=== PATIENT | female | born 1960 | race Caucasian/White ===

== ENCOUNTER → 2020-04-15 14:49 | Outpatient (CLI) | payer MEDICARE, SELFPAY ==
[2020-04-15 15:17] LABS: Basophils % 0.5 % (0.1-2.0); Eosinophils # 0.1 K/mm3 (0.0-0.4); Hematocrit 35.4 % (37.0-47.0); Hemoglobin 11.4 g/dL (12.2-16.2); Lymphocytes # 1.1 K/mm3 (0.7-4.5); Lymphocytes % 25.9 % (10-50); Mean Corpuscular HGB Conc 32.1 g/dL (31.8-35.4); Mean Corpuscular Hemoglobin 28.5 pg (27.0-31.2); Mean Corpuscular Volume 88.9 fl (81-99); Mean Platelet Volume 8.1 fl (7.4-10.4); Monocytes # 0.3 K/mm3 (0.1-1.0); Monocytes % 6.5 % (1.7-9.3); Neutrophils # 2.8 K/mm3 (1.8-7.8); Platelet Count 158 K/mm3 (142-424); Red Blood Count 3.98 M/mm3 (4.20-5.40); Red Cell Distribution Width 15.2 % (11.5-17.5); White Blood Count 4.4 K/mm3 (4.8-10.8)
[2020-04-15 15:26] LABS: Chloride 103 mmol/L (98-107); Potassium 4.5 mmoL/L (3.5-5.1); Sodium 137 mmol/L (136-145)
[2020-04-15 15:27] LABS: INR 1.06 (0.9-1.1); Prothrombin Time 10.9 seconds (9.4-11.8)
[2020-04-15 15:28] LABS: Ammonia < 9 umol/L (9-30)
[2020-04-15 15:29] LABS: Alanine Aminotransferase 32 U/L (12-78); Albumin Level 3.3 g/dl (3.5-5.0); Albumin/Globulin Ratio 0.8 (1.1-1.8); Alkaline Phosphatase 176 U/L (38-126); Anion Gap 10.5 mEq/L (5-15); Aspartate Amino Transferase 41 U/L (14-36); Bilirubin,Total 0.6 mg/dl (0.2-1.3); Blood Urea Nitrogen 15 mg/dl (7-17); Carbon Dioxide 28 mmol/L (22.0-30.0); Estimated Glomerular Filt Rate 51 ml/min (>60); GFR (African American) 62 ML/MIN (>60); Globulin 4.1 g/dL (1.3-3.2); Glucose 218 mg/dl (74-100); Iron 46 ug/dL (37-170); Total Protein,Serum 7.4 g/dl (6.3-8.2)
[2020-04-15 15:39] LABS: Total Iron Binding Capacity 361 ug/dL (265-497)
[2020-04-15 17:08] LABS: Coronavirus 19 IgG Antibody Negative (Negative); Coronavirus 19 IgM Antibody Negative (Negative)
[2020-04-17 07:26] LABS: AFP, Tumor Marker 4.3 ng/mL (0.0-8.3)
== END ==
PROVIDERS: Visit Provider Internal Medicine Gastroenterology
DX: Z01.818 Encounter for other preprocedural examination (principal); Z13.810 Encounter for screening for upper gastrointestinal disorder; I85.01 Esophageal varices with bleeding; K59.00 Constipation, unspecified; K74.60 Unspecified cirrhosis of liver; K75.81 Nonalcoholic steatohepatitis (NASH); K72.90 Hepatic failure, unspecified without coma
CPT/HCPCS: 36415; 80053; 82105; 82140; 82728; 83540; 83550; 85025; 85610; 86328

== ENCOUNTER 2020-04-18 09:43 | Day surgery (SDC) | payer MEDICARE, SELFPAY ==
[2020-04-14 10:37] VITALS: BMI 26.6
[2020-04-18] VITALS (7 sets, daily range): BP systolic 130–138; BP diastolic 65–78; PULSE 69–97; RESP 16–18; TEMP 36.4; O2SAT 96–100
[2020-04-18 10:15] LABS: POC Glucose,Bedside 187 (70-110)
--- NOTE | 2020-04-18 10:22 | HMH.ANESCL ---
[facility] Anesthesia Checklist - Patient Identification Patient Identification: Arm Band, Verbal (Name & ) - Structural Data Admitted From: Home Planned Operative Procedure/s: EGD Consent for Planned Operative Procedure(s) Verified: Yes Verified Documents: Surgical Consent, History and Physical - NPO Status Verified Time NPO: 00:00 - Chart Verification Results Verified: CBC, BMP, PT, PTT, INR - Additional verifications Anesthesia Reactions: No - Airway Assessment C-Spine Mobility Assessed: Yes TMJ Mobility Assessed: Yes Dentition: Good Dentition - Neurological Assessment Level of Consciousness: Awake, Alert, Appropriate, Follows Commands Hx Seizures: No Numbness or tingling in extremities: No - Anesthesia Plan Anesthesia Risk discussed: Yes Anesthesia Plan: Verified ASA Class: III Anesthesia Type: MAC [facility] History I have reviewed the patient's past medical history: Yes Medical History: Reports:: Anxiety, Depression, Diabetes Mellitus Type 2, Gastroesophageal Reflux Disease(GERD), Hyperlipidemia, Hypertension, Kidney Stones Denies:: Cancer, Diabetes Mellitus Type 1, Internal Pacemaker, MRSA, Seizures *Have you ever received a pneumonia vaccine?: No *Have you received a flu vaccine this season?: No Other Medical History: Reports: Liver Disease (Cirrhosis) Comment:: esophageal varices, chronic pain, ascites Anesthesia experience/problems:: no prior complications Other Surgeries: Yes: Appendectomy, Cholecystectomy, EGD, Hysterectomy-Total. No: Pacemaker Amputation: No Fractures: Yes - *Social History Last grade of school completed: High school graduate Smoking Status: Never smoker Alcohol Intake: never Substance Use Type: denies use *Occupational Status:: disabled Housing: house Household Members: spouse *Travel in the last 8 weeks: None Family Hx:: Cancer, Diabetes, Heart Attack, Hyperlipidemia, Hypertension, Stroke
--- NOTE | 2020-04-18 10:38 | P.PCN_ITS ---
[facility] Procedure Note Procedure Note:: Upper Endoscopy Procedure Report: Esophagogastroduodenoscopy with variceal band ligation Endoscopost: Dawood Zhou II, MD Referring Physician: Wilian Agustin MD Date of Procedure: April 18, 2020 Equipment: Olympus GIF 180 standard upper endoscope Sedation: MAC sedation Indications: Mrs. Smith is a 59-year-old female with a history of cirrhosis and portal hypertension. She has had prior upper gastrointestinal bleeding from esophageal varices. She did go to the [facility] and had band ligation x11. She also had gastric varices and in the past underwent BRTO (balloon?occluded retrograde transvenous obliteration) of the gastric varices. This occurred in the distant past at the [facility]. The patient has had EGD with me in September 2019 (esophageal band ligation x7 of grade 2-3 esophageal varices) and repeat EGD with band ligation on November 24, 2019 (band ligation x7 of grade 2 esophageal varices). The patient did have a paracentesis in September 2019. This was at [facility]. She has not seen transplant hepatology at the [facility] and has not been followed recently. She does have a very strong family history of liver disease, cirrhosis and hepatocellular carcinoma. Procedure: Prior to the procedure, a history and physical exam was performed, and patient's medications and allergies were reviewed. The risks, benefits and alternatives of the sedation and procedure were discussed with the patient. All questions were answered and informed consent was obtained. The patient was brought to the procedure room. Patient identification and proposed procedure were verified by the physician and the nurse. The patient was placed in a left lateral decubitus position and the scope was passed under direct vision. Throughout the procedure, the patient's blood pressure, pulse, and oxygen saturations were monitored continuously. The upper GI endoscopy was accomplished without difficulty. The patient tolerated the procedure well. Findings: The scope was passed directly into the upper esophagus and advanced to the third portion of the duodenum. The post bulbar duodenum and duodenal bulb were normal with normal mucosa and conniventes. The scope was withdrawn through a normal duodenal bulb and pylorus into the stomach. The antrum of the stomach was normal. There was evidence of mosaic pattern to the body and fundus of the stomach consistent with mild to moderate portal gastropathy. Upon retroflexion there was no evidence of gastric varices. There was no hiatal hernia. The scope was then withdrawn into the esophagus. There was marked improvement of the esophageal varices that were now grade 1 with some esophageal fibrosis from banding. There were 3 areas where the varices appeared to be more prominent and these were banded using 3 bands with excellent ligation. The remainder of the esophageal mucosa was normal. Impression: 1. Grade 1 esophageal varices status post band ligation x3 2. Mild portal gastropathy Plan: I will discuss the findings with patient and family. I would like for her to be followed routinely by transplant hepatology and myself. I do not feel that she will require another endoscopy for variceal banding to obliteration which is now complete.
== END 2020-04-18 11:40 | disposition home or self-care (01) ==
PROVIDERS: PCP Internal Medicine; Visit Provider Internal Medicine Gastroenterology
PROC: 0DJ08ZZ Inspection of Upper Intestinal Tract, Via Natural or Artificial Opening Endoscopic (ICD-10-PCS; CPT 43235; principal; 2020-04-18 11:30)
DX: I85.00 Esophageal varices without bleeding (principal); K76.6 Portal hypertension; K31.89 Other diseases of stomach and duodenum; Z87.19 Personal history of other diseases of the digestive system; Z80.0 Family history of malignant neoplasm of digestive organs; Z83.79 Family history of other diseases of the digestive system; F41.9 Anxiety disorder, unspecified; F32.9 Major depressive disorder, single episode, unspecified; E11.9 Type 2 diabetes mellitus without complications; K21.9 Gastro-esophageal reflux disease without esophagitis; E78.5 Hyperlipidemia, unspecified; I10 Essential (primary) hypertension; Z87.442 Personal history of urinary calculi
CPT/HCPCS: 43244; 82962